=== PATIENT | male | born 1985 | race Native Hawaiian/Other Pacific Islander ===

== ENCOUNTER 2021-09-08 16:30 | Outpatient (CLI) | payer OTHER ==
[~2021-09-08 16:30] MED LIST: LAMICTAL200 MG OR
[2021-09-08 16:59] LABS: PLATELET COUNT 203 K/uL (142-355)
[2021-09-08 17:14] LABS: POTASSIUM 3.8 mmol/L (3.6-5.2)
== END 2021-09-08 21:55 | disposition home or self-care (01) ==
LOC: LABW 16:30
PROVIDERS: ATTEND Internal Medicine
DX: R50.9 Fever, unspecified (principal); Z11.52 Encounter for screening for COVID-19
CPT/HCPCS: 36415; 80053; 81000; 85027; 87502; 87635; 87651; G2023; U0003